=== PATIENT | female | born 1955 | race American Indian/Alaskan Native ===

== ENCOUNTER 2016-12-27 10:12 | Day surgery (SDC) | payer OTHER ==
[~2016-12-27 10:12] MED LIST: NACL 0.9% 1000 ML 1,000 ML IV SCH
--- NOTE | 2016-12-27 12:11 | Anesthesia Day of Surgery ---
Anesthesia Day of Surgery - Day of Surgery Patient Examined: Yes Patient H&P Reviewed: Yes Patient is NPO: Yes
--- NOTE | 2016-12-27 12:11 | Anesthesia Consultation ---
Anesthesia Consult and Med Hx Date of service: 12/27/16 - Airway Anesthetic Teeth Evaluation: Good ROM Head & Neck: Adequate Mental/Hyoid Distance: Adequate Mallampati Class: Class II Intubation Access Assessment: Probably Good - Pulmonary Exam CTA: Yes - Cardiac Exam Cardiac Exam: RRR - Pre-Operative Health Status ASA Pre-Surgery Classification: ASA2 Proposed Anesthetic Plan: MAC - Pulmonary Hx Smoking: Yes (former) Hx Asthma: No Hx Sleep Apnea: No - Cardiovascular System Hx Hypertension: Yes (on amlodipine, clonidine, lorsartan) Hx Heart Attack/AMI: No Hx Heart Murmur: Yes (as a child, last checked up with video control engineer 3 years ago) - Central Nervous System Hx Seizures: No CVA: No - Endocrine Hx Renal Disease: No Hx Liver Disease: No Hx Non-Insulin Dependent Diabetes: No - Additional Comments Anesthesia Medical History Comments: NAC
[2016-12-27] MEDS ORDERED: XYLOCAINE MPF 2% ONE (13:20)
[2016-12-27] MEDS ORDERED: DIPRIVAN 10 MG/ML IV ONE ×2 (13:44→13:45)
--- NOTE | 2016-12-27 13:50 | Discharge Summary ---
Short Stay Discharge Plan Activity: advance as tolerated Weight Bearing Status: Weight Bear as Tolerated Diet: regular Follow up with: SUNITHA DICKERSON MD [Primary Care Provider] - 7 Days
--- NOTE | 2016-12-27 13:50 | Operative Report ---
Operative Report Operative Report: Date of procedure: 12/27/2016. Procedure: Colonoscopy with hot biopsy polypectomy. Attending physician: Chrsi Turcios MD Scalp Treatment Specialist: Chris Turcios MD Indication: Patient is a 61-year-old female who presents for colorectal cancer screening. A colonoscopy is done to evaluate patient so that treatment may be directed based on the findings. Consent: Informed consent was obtained after advising the patient and family regarding nature of this procedure, its indications, potential benefits as well as possible complications including but not limited to bleeding perforation and adverse reaction to medication, infection as well as other cardiopulmonary complications. An informed written and verbal consent was then obtained after due opportunity was provided for questions and answers. Monitoring: Patient was monitored continuously with pulse oximetry and electrocardiographic recordings as well as blood pressure recordings. Vital signs remained stable throughout this procedure with no untoward events. Preoperative assessment: Patient was assessed immediately prior to this procedure for capacity to tolerate monitored anesthesia care and moderate sedation as well as general anesthesia. Patient's ASA classification is 2, Mallampati class is 2, Hyomental distance is 3. Instrument: [employer] video colonoscope. Medications: Propofol given intravenously in divided doses. For details please refer to anesthesia records. Description of procedure: Patient was placed in the left lateral decubitus position after achieving sedation, a digital rectal examination was performed following which the colonoscope was introduced into the anal verge and advanced to the cecum which was identified by the cecal valve, the appendiceal orifice, as well as by the cecal strap and direct transillumination. The colonoscope was subsequently withdrawn with careful inspection of all mucosal surfaces. Patient tolerated this procedure well and was subsequently taken to the recovery room. The following findings were noted. Findings: Patient had a few diverticula in the sigmoid colon. There was a diminutive polyp seen in the sigmoid colon which was flat measured approximately 4 mm and was removed by hot biopsy polypectomy. The rest of the colon was normal to the cecum. The retroflex view at the anal verge, patient had internal hemorrhoids. Impression: Diminutive sigmoid colon polyp status post hot biopsy polypectomy. Mild diverticulosis of the sigmoid colon. Internal hemorrhoids. Plan: Follow pathology report. High-fiber diet. Follow-up colonoscopy in 5 years if polyp is adenomatous.
[2016-12-27 14:21] VITALS: BP 164/62
--- NOTE | 2016-12-27 15:02 | Post Anesthesia Evaluation ---
- Post Anesthesia Evaluation Patient Participated: Yes Airway Patent: Yes Stable Respiratory Function: Yes Nausea/Vomiting: No Temp > 96.8F: Yes Pain Manageable: Yes Adequeate Hydration: Yes Anesthesia Complications: No Block Receding Appropriately: Not Applicable Patient on Ventilator: No
== END 2016-12-27 10:13 | disposition home or self-care (01) ==
LOC: GIO 10:12
PROVIDERS: ATTEND Internal Medicine Gastroenterology
DX: Z12.11 Encounter for screening for malignant neoplasm of colon (principal); K63.5 Polyp of colon; K57.30 Diverticulosis of large intestine without perforation or abscess without bleeding; K64.8 Other hemorrhoids; I10 Essential (primary) hypertension; F41.9 Anxiety disorder, unspecified; M19.90 Unspecified osteoarthritis, unspecified site; Z87.891 Personal history of nicotine dependence; Z79.899 Other long term (current) drug therapy; Z72.89 Other problems related to lifestyle; Z80.0 Family history of malignant neoplasm of digestive organs
CPT/HCPCS: 45384; 88305; J2704; J7030